=== PATIENT | female | born 1990 | race Two or more races ===

== ENCOUNTER 2018-03-21 11:36 | Outpatient (CLI) | payer OTHER | END 2018-03-21 12:31 | disposition home or self-care (01) | LOC: NST 11:36 | DX: Z34.83 Encounter for supervision of other normal pregnancy, third trimester (principal) ==

== ENCOUNTER 2018-03-29 09:16 | Outpatient (CLI) | payer OTHER | END 2018-03-29 09:59 | disposition home or self-care (01) | LOC: NST 09:16 | DX: Z34.83 Encounter for supervision of other normal pregnancy, third trimester (principal) ==

== ENCOUNTER 2018-04-12 10:12 | Inpatient (IN) | payer OTHER ==
[~2018-04-12] VITALS: Ht 167.6 cm; Wt 68.5 kg
[2018-04-19] MEDS ORDERED: PRENATAL TABLE1 EAC1 PO (17:46)
== END 2018-04-21 13:12 | DRG 775 ==
LOC: OB/GYN 04-19 10:30 → LDR 04-19 16:49 → OB/GYN 04-19 21:20
PROC: 10E0XZZ Delivery of Products of Conception, External Approach (ICD-10-PCS; principal; 2018-04-19)
PROC: 0W8NXZZ Division of Female Perineum, External Approach (ICD-10-PCS; 2018-04-19)
PROC: 10907ZC Drainage of Amniotic Fluid, Therapeutic from Products of Conception, Via Natural or Artificial Opening (ICD-10-PCS; 2018-04-19)
PROC: 3E033VJ Introduction of Other Hormone into Peripheral Vein, Percutaneous Approach (ICD-10-PCS; 2018-04-19)
PROC: 4A1HXCZ Monitoring of Products of Conception, Cardiac Rate, External Approach (ICD-10-PCS; 2018-04-19)
DX: O99.824 Streptococcus B carrier state complicating childbirth (principal); Z3A.37 37 weeks gestation of pregnancy; Z37.0 Single live birth

== ENCOUNTER → 2019-02-01 | Emergency (ER) | payer OTHER ==
[~2019-02-01] VITALS: Ht 167.6 cm; Wt 52.2 kg
[~2019-02-01] MED LIST: PRENATAL TABLE1 EAC1 PO
== END | disposition home or self-care (01) ==
LOC: ER 01:36
DX: R42 Dizziness and giddiness (principal)

== ENCOUNTER 2019-10-08 10:30 | Outpatient (CLI) | payer OTHER | END 2019-10-08 11:22 | disposition home or self-care (01) | LOC: NST 10:30 | DX: Z34.83 Encounter for supervision of other normal pregnancy, third trimester (principal) ==

== ENCOUNTER 2019-10-15 11:36 | Inpatient (IN) | payer OTHER ==
[~2019-10-15] VITALS: Ht 167.6 cm; Wt 69.4 kg
== END 2019-10-17 11:43 | disposition home or self-care (01) | DRG 807 ==
LOC: OB/GYN 11:36 → LDR 11:36 → OB/GYN 15:53
PROVIDERS: ADMIT Obstetrics & Gynecology
PROC: 10E0XZZ Delivery of Products of Conception, External Approach (ICD-10-PCS; principal; 2019-10-15)
PROC: 0W8NXZZ Division of Female Perineum, External Approach (ICD-10-PCS; 2019-10-15)
PROC: 3E033VJ Introduction of Other Hormone into Peripheral Vein, Percutaneous Approach (ICD-10-PCS; 2019-10-15)
PROC: 4A1HXCZ Monitoring of Products of Conception, Cardiac Rate, External Approach (ICD-10-PCS; 2019-10-15)
DX: O80 Encounter for full-term uncomplicated delivery (principal); Z37.0 Single live birth; Z3A.38 38 weeks gestation of pregnancy; Z22.330 Carrier of Group B streptococcus

== ENCOUNTER 2020-07-13 12:32 | Outpatient (CLI) | payer OTHER | END 2020-07-13 12:58 | disposition home or self-care (01) | LOC: SONOGRAMA 12:32 | PROVIDERS: ATTEND Otolaryngology Otology & Neurotology | DX: E04.1 Nontoxic single thyroid nodule (principal) ==

== ENCOUNTER → 2020-07-21 | Outpatient (CLI) | payer OTHER | END | disposition home or self-care (01) | LOC: OFIC 805 14:40 | PROVIDERS: ATTEND Otolaryngology Otology & Neurotology | DX: E04.1 Nontoxic single thyroid nodule (principal) ==

== ENCOUNTER 2020-07-22 12:55 | Outpatient (CLI) | payer OTHER | END 2020-07-22 13:03 | disposition home or self-care (01) | LOC: SONOGRAMA 12:55 | PROVIDERS: ATTEND Pathology Anatomic Pathology & Clinical Pathology | DX: E04.1 Nontoxic single thyroid nodule (principal) ==

== ENCOUNTER → 2020-08-06 | Outpatient (CLI) | payer OTHER | END | disposition home or self-care (01) | LOC: OFIC 805 14:00 | PROVIDERS: ATTEND Otolaryngology Otology & Neurotology | DX: E04.1 Nontoxic single thyroid nodule (principal) ==

== ENCOUNTER 2022-05-23 11:56 | Emergency (ER) | payer OTHER ==
[~2022-05-23] VITALS: Ht 167.6 cm; Wt 56.7 kg
[2022-05-23] MEDS ORDERED: KETO10TA2 PO (12:21)
[2022-05-23] MEDS ORDERED: PERCOGESIC EXT1 EACH PO (12:21)
== END 2022-05-23 15:47 | disposition home or self-care (01) ==
LOC: ER 11:56
DX: R10.2 Pelvic and perineal pain (principal); N83.209 Unspecified ovarian cyst, unspecified side; Z88.0 Allergy status to penicillin

== ENCOUNTER 2022-05-24 06:19 | Day surgery (SDC) | payer OTHER ==
[~2022-05-24 06:19] MED LIST changes: +KETO10TA2 PO; +PERCOGESIC EXT1 EACH PO
== END 2022-05-24 14:40 | disposition home or self-care (01) ==
LOC: CIR.AMB 06:19
PROVIDERS: ATTEND Obstetrics & Gynecology
DX: N83.8 Other noninflammatory disorders of ovary, fallopian tube and broad ligament (principal); N70.11 Chronic salpingitis; Z20.822 Contact with and (suspected) exposure to COVID-19; Z88.0 Allergy status to penicillin; Z86.16 Personal history of COVID-19